=== PATIENT | male | born 1985 | race Caucasian/White ===

== ENCOUNTER 2019-08-28 07:40 | Emergency (ER) | payer BC ==
[~2019-08-28] VITALS: Ht 188 cm; Wt 138.0 kg
--- NOTE | 2019-08-28 08:06 | PHYS DOC ---
Past Medical History Past Medical History: GERD Past Surgical History: No Surgical History Smoking Status: Current Every Day Smoker Alcohol Use: Heavy Additional Information: PT REPORTS IF HE IS OFF WORK HE DRINKS A LOT, BUT STATES "I HAVE A FEW AND THEN GO TO BED IF I'VE WORKED" General Adult EDM: Chief Complaint: CHEST PAIN HPI: HPI: Patient is a 34 year old male presenting to the ED with a chief complaint of chest pain. Patient is not able to identify what time the pain started but states that he was drinking alcohol all night and has not slept this morning. Patient states that he was playing video games with his brother when he started having chest pain. Patient does admit to drinking alcohol every day and is an active smoker. Patient states that he does not know whether he has any other medical history or not. Patient does state that he has a cardiac history from his dad and mother side. Patient was brought by EMS and EMS gave him aspirin and Nitropaste. Patient states that now his pain is 8 out of 10. Review of Systems: Review of Systems: Constitutional: Denies fever or chills. [] Eyes: Denies change in visual acuity. [] HENT: Denies nasal congestion or sore throat. [] Respiratory: Denies cough or shortness of breath. [] Cardiovascular: Complains of chest pain [] GI: Denies abdominal pain, nausea, vomiting, bloody stools or diarrhea. [] : Denies dysuria. [] Neurologic: Denies headache, focal weakness or sensory changes. [] Heart Score: Risk Factors: Risk Factors: DM, Current or recent (<one month) smoker, HTN, HLP, family history of CAD, obesity. Risk Scores: Score 0 - 3: 2.5% MACE over next 6 weeks - Discharge Home Score 4 - 6: 20.3% MACE over next 6 weeks - Admit for Clinical Observation Score 7 - 10: 72.7% MACE over next 6 weeks - Early Invasive Strategies Allergies: Allergies: Allergies Coded Allergies Type Severity Reaction Last Updated Verified quetiapine Allergy Unknown ITCHING 08/28/19 Yes Physical Exam: PE: Constitutional: Well developed, well nourished, no acute distress, non-toxic appearance. [] HENT: Normocephalic, atraumatic Eyes: EOMI Neck: Normal range of motion, Supple Cardiovascular:Heart rate regular rhythm Lungs & Thorax: Bilateral breath sounds clear to auscultation [] Abdomen: Bowel sounds normal, soft, no tenderness Extremities: No tenderness, ROM intact Neurologic: Alert and oriented X 3 Current Patient Data: Vital Signs: Vital Signs Date Time Temp Pulse Resp B/P (MAP) Pulse Ox O2 Delivery O2 Flow Rate FiO2 08/28/19 07:40 98.9 87 18 141/81 (101) 97 Room Air 98.9 EKG: EKG: EKG interpretation: 7: 44 AM on 08/28/2019 HR: 94 Sinus rhythm Regular intervals Leftward axis Nonspecific ST changes No STEMI Radiology/Procedures: Radiology/Procedures: [] Impression: CXR IMPRESSION: Linear bands of subsegmental atelectasis are seen involving both lower lobes. No area of consolidation is seen. Course & Med Decision Making: Course & Med Decision Making Pertinent Labs and Imaging studies reviewed. (See chart for details) Ordered EKG, chest x-ray, labs, troponin Vital signs are stable. EKG does not show any acute changes. Chest x-ray does not show any acute disease. Potassium is 2.9. Potassium has been replaced in the ER. Patient alcohol level is 0.155. Troponin is negative. Dragon Disclaimer: Dragon Disclaimer: This electronic medical record was generated, in whole or in part, using a voice recognition dictation system. Departure Departure Impression: Primary Impression: Chest pain Disposition: 01 HOME, SELF-CARE Condition: STABLE Referrals: INA IBARRA Jr, MD (PCP) Patient Instructions: Chest Pain (Nonspecific), Hypokalemia Additional Instructions: Discussed results and plan of care with patient. Patient is instructed to follow up with PCP in one to 2 days. Appropriate discharge instructions given to patient to return to the ED or to seek immediate medical evaluation. Patient is instructed to return to the ED if symptoms worsen or if any concerns. Justicifation of Admission Dx: Justifications for Admission: Justification of Admission Dx: ALEXANDER Pereira DO Aug 28, 2019 08:06
[2019-08-28 08:10] LABS: BASO # 0.1 x10^3/uL (0.0-0.2); BASO % 1 % (0-3); EOS # 0.1 x10^3/uL (0.0-0.7); EOS % 1 % (0-3); HEMATOCRIT 46.2 % (39.0-53.0); HEMOGLOBIN 16.3 g/dL (13.0-17.5); LYMPH # 3.9 x10^3/uL (1.0-4.8); LYMPH % 42 % (24-48); MEAN CORPUSCULAR HEMOGLOBIN 34 pg (25-35); MEAN CORPUSCULAR HGB CONC 35 g/dL (31-37); MEAN CORPUSCULAR VOLUME 98 fL (79-100); MONO # 0.6 x10^3/uL (0.0-1.1); MONO % 7 % (0-9); NEUT # 4.5 x10^3/uL (1.8-7.7); NEUT % 49 % (31-73); PLATELET COUNT 246 x10^3/uL (140-400); RED BLOOD COUNT 4.74 x10^6/uL (4.30-5.70); RED CELL DISTRIBUTION WIDTH 13.6 % (11.5-14.5); WHITE BLOOD COUNT 9.1 x10^3/uL (4.0-11.0)
[2019-08-28 08:22] LABS: ALBUMIN 3.5 g/dL (3.4-5.0); ALBUMIN/GLOBULIN RATIO 0.9 (1.0-1.7); CALCIUM 8.2 mg/dL (8.5-10.1); CREATININE 1.1 mg/dL (0.7-1.3); GFR 77.1; TOTAL BILIRUBIN 0.3 mg/dL (0.2-1.0); TOTAL PROTEIN 7.3 g/dL (6.4-8.2)
[2019-08-28 08:24] LABS: POTASSIUM 2.9 mmol/L (3.5-5.1)
--- NOTE | 2019-08-28 08:25 | RAD ---
PA and lateral chest radiographs 08/28/2019 CLINICAL HISTORY: Chest pain. PA and lateral digital radiographs of the chest were obtained. No previous studies are available for comparison. The cardiac and mediastinal silhouettes are within normal limits in size and configuration. Linear bands of subsegmental atelectasis are seen involving both lower lobes. No area of consolidation is seen. No pneumothorax or pleural effusion is noted. Degenerative changes are seen involving the thoracic spine. IMPRESSION: Linear bands of subsegmental atelectasis are seen involving both lower lobes. No area of consolidation is seen. Electronically signed by: Raz Asher MD (08/28/2019 8:22 AM) [id number]
[2019-08-28] MEDS ORDERED: POTASSIUM CHLORIDE 20 MEQ TABLET.ER. PO ONE ×2 (08:30→12:15)
[2019-08-28 08:51] LABS: BARBITURATES NEG (NEG); BENZODIAZEPINES NEG (NEG); CANNABINOIDS NEG (NEG); COCAINE NEG (NEG); METHADONE NEG (NEG); OPIATES NEG (NEG); PHENCYCLIDINE NEG (NEG)
[2019-08-28 08:56] LABS: AMPHETAMINE/METHAMPHETAMINE NEG (NEG)
[2019-08-28] MEDS ORDERED: ONDANSETRON PF 4 MG/2 ML VIAL. IVP ONE (11:45)
--- NOTE | 2019-08-28 12:11 | EKG ---
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
[2019-08-28 12:36] VITALS: BP 132/83
== END 2019-08-28 12:37 | disposition home or self-care (01) ==
LOC: ER 07:40
DX: R07.89 Other chest pain (principal); K21.9 Gastro-esophageal reflux disease without esophagitis; F17.200 Nicotine dependence, unspecified, uncomplicated; F10.10 Alcohol abuse, uncomplicated
CPT/HCPCS: 36415; 71046; 80053; 80307; 83690; 83735; 83880; 84484; 85025; 93005; 96374; 99285; G0480; J2405